=== PATIENT | male | born 1965 | race Caucasian/White ===

== ENCOUNTER 2023-12-26 21:08 | Emergency (ER) | payer MEDICAID, OTHER ==
[~2023-12-26 21:08] MED LIST: LITH300C3 PO; OMEP40CA20 MT; QUET200T PO
[2023-12-26 21:37] VITALS: PULSE 99
== END 2023-12-27 00:17 | disposition left against medical advice (07) ==
LOC: ER 21:08
DX: R42 Dizziness and giddiness (principal); Z53.21 Procedure and treatment not carried out due to patient leaving prior to being seen by health care provider